=== PATIENT | female | born 1985 | race Caucasian/White ===

== ENCOUNTER 2020-10-23 14:57 | Emergency (ER) | payer MEDICAID ==
[~2020-10-23] VITALS: Ht 175.2 cm; Wt 99.7 kg
[~2020-10-23 14:57] MED LIST: FLUO40CA12 PO; NITR-65 PO; ONDA-42 SL
[2020-10-23 15:05] VITALS: BP 111/76
--- NOTE | 2020-10-23 15:49 | ED EENT ---
History of Present Illness General Chief Complaint: Ear Problems Stated Complaint: R EAR PAIN Nursing Triage Note: Pt c/o R sided ear pain and infection that has been going on for at least three weeks. Pt has taken 2-3 rounds of antibiotics that have not provided relief. Pt reports hearing loss. History of Present Illness Date Seen by Provider: Oct 23, 2020 Time Seen by Provider: 15:25 Initial Comments 34-year-old female presents with right-sided ear pain. She reports she's been having infection ear pain for about 3 weeks. She has taken one round of antibiotics. She saw her primary care provider 2 days ago and was started on a second round of antibiotics but has had no relief. Allergies and Home Medications Allergies Coded Allergies: No Known Drug Allergies (Unverified , 11/20/13) Home Medications Fluoxetine Hcl 40 Mg Capsule, 2 EACH PO DAILY, (Reported) Nitrofurantoin/Nitrofuran Mac 100 Mg Capsule, 1 EACH PO BID FOR INFECTION Prescribed by: KAREL KONG on 11/21/13 0118 Ondansetron Hcl 4 Mg Tab, 4 MG SL Q4H FOR NAUSEA AND VOMITING Prescribed by: KAREL KONG on 11/21/13 0032 Patient Home Medication List Home Medication List Reviewed: Yes Review of Systems Review of Systems Constitutional: no symptoms reported; No chills, No fever Eyes: No Symptoms Reported Ears: See HPI Respiratory: no symptoms reported Cardiovascular: no symptoms reported Gastrointestinal: no symptoms reported Past Gugsosb-Xvyqfc-Uijqht Hx Past Med/Social Hx: Reviewed Nursing Past Med/Soc Hx Patient Social History Alcohol Use: Occasionally Uses Recreational Drug Use: No Smoking Status: Current Everyday Smoker Type Used: Cigarettes 2nd Hand Smoke Exposure: No Recent Foreign Travel: No Contact w/Someone Who Travel: No Recent Infectious Disease Expo: No Past Medical History Surgeries: No Respiratory: No Cardiac: No Neurological: No Gastrointestinal: No Musculoskeletal: No Endocrine: No Cancer: No Psychosocial: Yes Depression Integumentary: No Blood Disorders: No Physical Exam Vital Signs Vital Signs - First Documented 10/23/20 15:05 Temp 36.8 Pulse 107 Resp 17 B/P (MAP) 111/76 (88) Pulse Ox 97 O2 Delivery Room Air Height, Weight, BMI Height: '" Weight: 150lbs. oz. 68.401620be; 32.00 BMI Method: General Appearance: no apparent distress Eyes: bilateral eye normal inspection Ears: right ear TM perforation, right ear other (patient with impaction, after impaction removed with gentle flushing. A small abrasion/ulceration/per perforation of the TM was noted.) Cardiovascular: normal peripheral pulses, regular rate, rhythm Respiratory: lungs clear, normal breath sounds Progress/Results/Core Measures Results/Orders Vital Signs/I&O 10/23/20 15:05 Temp 36.8 Pulse 107 Resp 17 B/P (MAP) 111/76 (88) Pulse Ox 97 O2 Delivery Room Air Blood Pressure Mean: 88 Progress Progress Note : Time: 16:51 Progress Note Patient with impacted cerebrum. After it was flushed there was noted to be a small ulceration versus small spontaneous perforation from her otitis. I discussed with her the need to continue her RA prescribe antibiotics. That she needs a follow-up with her primary care provider in 2-3 days for recheck to ensure it is healing properly. That she may need a ENT consult. Patient is stable and discharged home Departure Impression Primary Impression: Impacted cerumen Qualified Codes: H61.21 - Impacted cerumen, right ear Additional Impression: Otitis media Qualified Codes: H66.011 - Acute suppurative otitis media with spontaneous rupture of ear drum, right ear Disposition: 01 HOME, SELF-CARE Condition: Stable Departure-Patient Inst. Referrals: NO,LOCAL PHYSICIAN (PCP/Family) Primary Care Physician Patient Instructions: Ear Infections (Otitis Media) in Children (DC), Ear Wax Impaction (DC), Ruptured Eardrum (DC) Add. Discharge Instructions: Follow-up with your primary care provider in 2-3 days for recheck and today's complaints Use already prescribed antibiotics as directed All discharge instructions reviewed with patient and/or family. Voiced understanding. KAYODE LAWRENCE DO Oct 23, 2020 15:48
== END 2020-10-23 15:55 | disposition home or self-care (01) ==
LOC: EDUNIT# 14:57 → ER 14:59
DX: H61.21 Impacted cerumen, right ear (principal); H66.91 Otitis media, unspecified, right ear; F32.9 Major depressive disorder, single episode, unspecified; F17.210 Nicotine dependence, cigarettes, uncomplicated
CPT/HCPCS: 99282

== ENCOUNTER 2022-10-12 10:52 | Emergency (ER) | payer MEDICAID ==
[~2022-10-12] VITALS: Ht 177 cm; Wt 99.7 kg
[2022-10-12] MEDS ORDERED: AMOX500C2 PO (11:30)
--- NOTE | 2022-10-12 11:31 | ED EENT ---
History of Present Illness General Chief Complaint: Ear Problems Stated Complaint: RIGHT EAR CLOGGED Nursing Triage Note: 2 WEEKS AGO BEGAN HAVING SINUS ISSUES AND THE LAST 5 DAYS HER RIGHT EAR HAS BEEN "CLOGGED" DENIES DRAINAGE. History of Present Illness Date Seen by Provider: Oct 12, 2022 Time Seen by Provider: 11:15 Initial Comments 36-year-old female presents for right ear pain and congestion. She states approximately 2 weeks ago having sinus congestion. Over the last 5 days her right ear has become congested with occasional yellow discharge. She has been using Mucinex with no improvement. She has had cerumen impaction in the past and was concerned that could be the issue. She denies any sinus drainage at this time. Timing/Duration: last week Location: ear (R) Prearrival Treatment: over the counter meds Associated Symptoms: change in hearing; No cough; ear drainage; No facial pain/swelling, No fever, No malaise, No nasal congestion/drainage, No sinus infection, No sore throat, No tooth pain Allergies and Home Medications Allergies Coded Allergies: No Known Drug Allergies (Unverified , 10/12/22) Patient Home Medication List Home Medication List Reviewed: Yes Amoxicillin (Amoxicillin) 500 Mg Capsule, 500 MG PO TID Prescribed by: DELBERT ALMANZA on 10/12/22 1130 Fluoxetine Hcl (Prozac) 40 Mg Capsule, 2 EACH PO DAILY, (Reported) Entered as Reported by: MANUEL LINDSAY on 11/20/13 2339 Nitrofurantoin/Nitrofuran Mac (Macrobid) 100 Mg Capsule, 1 EACH PO BID Prescribed by: KAREL KONG on 11/21/13 0118 Ondansetron Hcl (Zofran Oral Dissolve) 4 Mg Tab, 4 MG SL Q4H Prescribed by: KAREL KONG on 11/21/13 0032 Review of Systems Review of Systems Constitutional: no symptoms reported, see HPI Ears: See HPI, Pain; Denies Tinnitus, Denies Bloody Discharge; Clear Discharge; Denies Purulent Discharge, Denies Serosanguinous Discharge, Denies Previous Injury Nose: no symptoms reported, see HPI; denies congestion Mouth: no symptoms reported, see HPI Throat: no symptoms reported, see HPI Respiratory: no symptoms reported, see HPI; No cough All Other Systems Reviewed Negative Unless Noted: Yes Past Nttgvfd-Zpxxze-Ucwvzt Hx Patient Social History Tobacco Use?: Yes Tobacco type used: Cigarettes Smoking Status: Current Everyday Smoker Use of E-Cig and/or Vaping dev: No Substance use?: Yes Substance type: Marijuana Alcohol Use?: Yes Alcohol Frequency: Once in a while Pt feels they are or have been: No Immunizations Up To Date Influenza Vaccine Up-to-Date: No; Not Current Past Medical History Surgery/Hospitalization HX: CHRONIC EAR PROBELMS, DEPRESSION, ADHD, BLADDER CONTROL Surgeries: No Respiratory: No Cardiac: No Neurological: No Gastrointestinal: No Musculoskeletal: No Endocrine: No Cancer: No Psychosocial: Yes Depression Integumentary: No Blood Disorders: No Family Medical History Reviewed Nursing Family Hx Physical Exam Vital Signs Vital Signs - First Documented 10/12/22 11:05 Temp 37.7 Pulse 93 Resp 18 B/P (MAP) 106/68 (81) Pulse Ox 97 O2 Delivery Room Air Height, Weight, BMI Height: '" Weight: 150lbs. oz. 68.695169xw; 31.00 BMI Method: General Appearance: WD/WN, no apparent distress Ears: right ear erythema (in canal), right ear swelling, right ear tenderness, right ear TM red, right ear other (canal narrowed from swelling, no active drainage. TM retracted); left ear canal normal, left ear TM normal; bilateral ear auricle normal Nose: normal inspection; No active bleeding, No discharge Mouth/Throat: normal mouth inspection, pharynx normal Cardiovascular: normal peripheral pulses, regular rate, rhythm Respiratory: chest non-tender, lungs clear, normal breath sounds Neurologic/Psychiatric: no motor/sensory deficits, alert, normal mood/affect Progress/Results/Core Measures Results/Orders Vital Signs/I&O 10/12/22 10/12/22 11:05 11:36 Temp 37.7 37.7 Pulse 93 93 Resp 18 18 B/P (MAP) 106/68 (81) 106/68 Pulse Ox 97 97 O2 Delivery Room Air Room Air Blood Pressure Mean: 81 Departure Impression Primary Impression: Otitis externa Qualified Codes: H60.311 - Diffuse otitis externa, right ear Additional Impression: Otitis media Qualified Codes: H66.001 - Acute suppurative otitis media without spontaneous rupture of ear drum, right ear Disposition: 01 HOME, SELF-CARE Condition: Improved Departure-Patient Inst. Decision time for Depature: 11:25 Referrals: [facility] (PCP/Family) Primary Care Physician Patient Instructions: Outer Ear Infection (DC), Ear Infections (Otitis Media) in Adults (DC) Add. Discharge Instructions: Take antibiotics as prescribed. Stop Muccinex and start Sudafed Sinus Over the Counter. Alternate Tylenol 650 mg and Ibuprofen 600 mg every 4 hours for pain/fever. Increase water intake. Get a Flu shot at the end of this week. Follow up with Primary Care or [facility] walk in, if not improving or worsens. Return to Emergency Dept for new/urgent health care needs. All discharge instructions reviewed with patient and/or family. Voiced understanding. Scripts Amoxicillin (Amoxicillin) 500 Mg Capsule 500 MG PO TID, #21 CAP 0 Refills Prov: DELBERT ALMANZA 10/12/22 DELBERT ALMANZA Oct 12, 2022 11:31
[2022-10-12 11:36] VITALS: BP 106/68
== END 2022-10-12 11:36 | disposition home or self-care (01) ==
LOC: EDUNIT# 10:52 → ER 10:56
DX: H60.91 Unspecified otitis externa, right ear (principal); H66.91 Otitis media, unspecified, right ear; F17.210 Nicotine dependence, cigarettes, uncomplicated; Z28.311 Partially vaccinated for COVID-19
CPT/HCPCS: 99283